=== PATIENT | male | born 1990 | race Caucasian/White ===

== ENCOUNTER 2021-12-17 13:30 | Outpatient (RCR) | payer BC, SELFPAY | END 2022-04-01 13:40 | disposition home or self-care (01) | PROVIDERS: PCP Family Medicine; Visit Provider Podiatrist | DX: M79.11 Myalgia of mastication muscle (principal); Z51.89 Encounter for other specified aftercare | CPT/HCPCS: 97110; 97162 ==

== ENCOUNTER 2021-12-24 13:00 | Outpatient (RCR) | payer BC, SELFPAY | END 2022-08-27 23:59 | disposition home or self-care (01) | PROVIDERS: PCP Family Medicine; Visit Provider Dentist General Practice | DX: M79.11 Myalgia of mastication muscle (principal); Z51.89 Encounter for other specified aftercare | CPT/HCPCS: 97110; 97140; 97161 ==